=== PATIENT | female | born 2000 | race Caucasian/White ===

== ENCOUNTER 2021-10-03 18:11 | Observation (INO) | payer OTHER ==
[~2021-10-03] VITALS: Ht 162.6 cm; Wt 80.0 kg
[~2021-10-03 18:11] MED LIST: HUMALOG100 UNIT/1; HUMALOG100 UNIT/1 SQ; HUMALOG100 UNIT/2 SUB-Q; HUMULIN N100 UNIT/1 SQ; LANTUS SOL100 UNIT/1 SUB-Q; LANTUS100 UNITS/ SQ
[2021-10-03] MEDS ORDERED: BASAGLAR K100 UNIT/1 SUB-Q (19:30)
[2021-10-03] MEDS ORDERED: EUTHYROX50 MCG PO (19:30)
--- NOTE | 2021-10-04 01:48 | NUR ---
Patient alert, oriented, and cooperative. Denies pain or discomfort. Sister at bedside. Will continue to monitor.
--- NOTE | 2021-10-04 07:30 | NUR ---
REPORT RECIEVED. TALKED WITH PATIENT ABOUT POC FOR DAY [employer] UNDERSANDING. DR. BENITO PHONED IN AND UPDATED VIA PHONE, ORDERS RECIEVED.
== END 2021-10-04 11:30 | disposition home or self-care (01) ==
LOC: ED 18:11 → CCU 18:14
PROVIDERS: ADMIT Internal Medicine; ATTEND Internal Medicine
DX: E10.10 Type 1 diabetes mellitus with ketoacidosis without coma (principal); E03.9 Hypothyroidism, unspecified; Z96.41 Presence of insulin pump (external) (internal); Z20.822 Contact with and (suspected) exposure to COVID-19
CPT/HCPCS: 36415; 80048; 80053; 81001; 82010; 82800; 83036; 84703; 85025; C9803; J1815; J3480; J7030; U0003

== ENCOUNTER 2022-06-03 18:10 | Emergency (ER) | payer OTHER ==
[~2022-06-03] VITALS: Ht 162.6 cm; Wt 79.8 kg
[~2022-06-03 18:10] MED LIST changes: +BASAGLAR K100 UNIT/1 SUB-Q; +EUTHYROX50 MCG PO
[2022-06-03] MEDS ORDERED: LANTUS100 UNITS/ SUB-Q (20:17)
== END 2022-06-03 22:17 | disposition home or self-care (01) ==
LOC: ED 18:10
DX: E11.65 Type 2 diabetes mellitus with hyperglycemia (principal); Z79.4 Long term (current) use of insulin; Z20.822 Contact with and (suspected) exposure to COVID-19
CPT/HCPCS: 36415; 80053; 81003; 82010; 82803; 84703; 85025; 87502; 99284; U0003

== ENCOUNTER 2023-04-08 19:19 | Emergency (ER) | payer OTHER ==
[~2023-04-08] VITALS: Ht 162.6 cm; Wt 79.6 kg
[~2023-04-08 19:19] MED LIST changes: +LANTUS100 UNITS/ SUB-Q
[2023-04-08 21:22] LABS: PH, VENOUS 7.337 (7.31-7.41)
[2023-04-08 21:39] LABS: BASOPHILS 0.5 % (0-2); EOSINOPHILS 1.2 % (0-6); HEMATOCRIT 42.5 % (35.0-50.0); LYMPHOCYTES 27.9 % (24-44); MCH 29.5 (27-36); MCV 89.5 fl (81-99); NEUTROPHILS 63.4 % (39-80); PLATELET COUNT 219 K/uL (140-440); RBC 4.75 M/ul (4.3-5.7)
[2023-04-08 21:40] LABS: ALBUMIN 4.2 g/dL (3.4-5.0); ALBUMIN/GLOBULIN RATIO 1.24 (1.1-2.4); ANION GAP 16.9 (7-21); BILIRUBIN, TOTAL 0.4 ng/dL (0.2-1.0); BUN/CREATININE RATIO 15.9 (6.0-28.6); CALCIUM 9.4 mg/dL (8.5-10.1); CREATININE, SERUM 0.88 mg/dL (0.55-1.02); POTASSIUM 3.9 mmol/L (3.5-5.1); PROTEIN, TOTAL 7.6 g/dL (6.4-8.2)
[2023-04-08 22:56] LABS: INFLUENZA B NAA NEGATIVE (NEGATIVE); RESPIRATORY SYNCYTIAL VIR NAA NEGATIVE (NEGATIVE)
[2023-04-08] MEDS ORDERED: ONDANSETRON ODT8 MG PO (23:03)
[2023-04-08] MEDS ORDERED: VENTOLIN HFA18 GM INH (23:03)
[2023-04-08 23:24] VITALS: BP 112/68
--- NOTE | 2023-04-09 06:26 | EKG ---
[facility] [address] [facility] [place], [place] [address] Signed Normal sinus rhythm Normal ECG Confirmed by RACHAEL MIX MD ([id number]) on 04/09/2023 6:26:34 AM Electronically Signed By: RACHAEL MIX 04/09/23 0626 PATIENT NAME: KRYSTAL JIMENEZ Electrocardiogram DATE OF : [birth year] PHYSICIAN: RACHAEL MIX REPORT #: [id number] REPORT IS CONFIDENTIAL AND NOT TO BE RELEASED WITHOUT AUTHORIZATION
== END 2023-04-08 23:27 | disposition home or self-care (01) ==
LOC: ED 19:19
PROVIDERS: Family Medicine
DX: B34.9 Viral infection, unspecified (principal); Z20.822 Contact with and (suspected) exposure to COVID-19; E11.9 Type 2 diabetes mellitus without complications; Z79.4 Long term (current) use of insulin; Z79.890 Hormone replacement therapy
CPT/HCPCS: 36415; 71045; 80053; 82010; 82803; 85025; 87502; 93005; 93010; 99285-25; A9270; C9803; U0002